=== PATIENT | male | born 1995 | race African-American/Black ===

== ENCOUNTER 2016-07-22 02:01 | Emergency (ER) | payer OTHER ==
[~2016-07-22] VITALS: Ht 180.3 cm; Wt 68.0 kg
[2016-07-22] MEDS ORDERED: BACT800T5 PO (02:22)
[2016-07-22] MEDS ORDERED: NS 1,000 ML IV ONE (06:00)
[2016-07-22] MEDS ORDERED: diphenhydrAMINE INJ 50MG/ML VIAL (J1200) IV ONE (06:00)
[2016-07-22] MEDS ORDERED: methylPREDNISolone INJ 125 MG/2 ML VIAL (J2930) IV ONE (06:00)
[2016-07-22] MEDS ORDERED: FAMOTIDINE 20 MG TAB PO ONE (06:00)
[2016-07-22 10:05] VITALS: BP 117/82
[2016-07-22] MEDS ORDERED: PRED50TA PO (10:09)
[2016-07-22] MEDS ORDERED: BENA25TA9 PO (10:10)
[2016-07-22] MEDS ORDERED: CIPR500S PO (10:11)
== END 2016-07-22 10:34 | disposition home or self-care (01) ==
LOC: M ED 03:03
DX: T78.40XA Allergy, unspecified, initial encounter (principal); L29.8 Other pruritus; X58.XXXA Exposure to other specified factors, initial encounter; Y92.89 Other specified places as the place of occurrence of the external cause; Y93.89 Activity, other specified; Y99.8 Other external cause status; N41.9 Inflammatory disease of prostate, unspecified
CPT/HCPCS: 96361; 96374; 96375; 99283; J1200; J2930

== ENCOUNTER → 2016-09-10 | Outpatient (REF) | payer OTHER ==
[~2016-09-10] MED LIST: BACT800T5 PO; BENA25TA9 PO; CIPR500S PO; PRED50TA PO
== END ==
LOC: M SMT 13:19
PROVIDERS: ATTEND Nurse Practitioner Family
DX: R30.0 Dysuria (principal)
CPT/HCPCS: 81001; 87086; G0463